=== PATIENT | female | born 1995 | race Caucasian/White ===

== ENCOUNTER 2022-12-13 15:59 | Emergency (ER) | payer OTHER ==
[~2022-12-13] VITALS: Ht 160 cm; Wt 52.2 kg
== END 2022-12-14 10:31 | disposition left against medical advice (07) ==
LOC: ER 15:59
DX: F10.129 Alcohol abuse with intoxication, unspecified (principal); R10.9 Unspecified abdominal pain; R18.8 Other ascites; N20.0 Calculus of kidney

== ENCOUNTER → 2022-12-13 | Emergency (ER) | payer OTHER ==
[~2022-12-13] VITALS: Ht 160 cm; Wt 52.2 kg
== END | disposition home or self-care (01) ==
LOC: ER 09:33
DX: R11.10 Vomiting, unspecified (principal); E86.0 Dehydration; F10.129 Alcohol abuse with intoxication, unspecified; F12.90 Cannabis use, unspecified, uncomplicated